=== PATIENT | male | born 1945 | race Caucasian/White ===

== ENCOUNTER 2021-08-07 12:19 | Emergency (ER) | payer MEDICARE, OTHER ==
[~2021-08-07] VITALS: Ht 154.9 cm; Wt 70.8 kg
[~2021-08-07 12:19] MED LIST: CINA30TA2 PO; FURO40TA5 PO; METO50TA16 PO; MYCO250C PO; PRED5TAB48 PO; TACR1CAP2 PO
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
--- NOTE | 2021-08-07 12:35 | NUR ---
DR DYER AT BEDSIDE
[2021-08-07] MEDS ORDERED: TACR1CAP7 PO (12:38)
--- NOTE | 2021-08-07 12:50 | NUR ---
EKG DONE AT BEDSIDE
[2021-08-07] MEDS ORDERED: ASPI-1420 PO (13:00)
[2021-08-07] MEDS ORDERED: ALBU18HF2 PO (13:00)
--- NOTE | 2021-08-07 13:04 | NUR ---
CASHIER ASSOCIATE AT BEDSIDE
--- NOTE | 2021-08-07 13:04 | NUR ---
CXR AT BEDSIDE DONE
--- NOTE | 2021-08-07 13:05 | NUR ---
COVID SWAB DONE AND SENT TO LAB
[2021-08-07 13:20] LABS: BASOPHILS # (AUTO) 0.1 K/uL (0.0-0.2); BASOPHILS % (AUTO) 0.5 % (0.0-2.0); EOSINOPHILS % (AUTO) 1.5 % (0.0-6.0); HEMATOCRIT 39 % (39-51); HEMOGLOBIN 12.9 g/dL (13.5-17.5); LYMPHOCYTES # (AUTO) 0.5 K/uL (0.8-4.8); LYMPHOCYTES % (AUTO) 5.1 % (20.0-44.0); MEAN CORPUSCULAR HGB CONC 33 g/dl (31.0-36.0); MEAN CORPUSCULAR VOLUME 83 fL (80-96); MONOCYTES # (AUTO) 0.6 K/uL (0.1-1.30); MONOCYTES % (AUTO) 5.7 % (2.0-12.0); NEUTROPHILS # (AUTO) 9.2 K/uL (1.8-8.9); NEUTROPHILS % (AUTO) 87.2 % (43.0-81.0); PLATELET COUNT (AUTO) 203 K/uL (150-450); RED BLOOD CELL COUNT(AUTO) 4.75 MIL/uL (4.5-6.0); WHITE BLOOD COUNT (AUTO) 10.5 K/uL (4.3-11.0)
[2021-08-07 13:38] LABS: CALCIUM, SERUM 9.8 mg/dL (8.5-10.1); CARBON DIOXIDE 31 mmol/L (21-32); CHLORIDE 105 mmol/L (98-107); CREATININE 1.7 mg/dL (0.6-1.3); GLUCOSE 114 mg/dL (74-106); POTASSIUM 3.2 mmol/L (3.5-5.1); SODIUM SERUM 144 mmol/L (136-145); UREA NITROGEN, BLOOD 28 mg/dL (7-18)
--- NOTE | 2021-08-07 13:45 | NUR ---
MOVE SHEET SUBMITTED.
[2021-08-07 13:51] LABS: ALANINE AMINOTRANSFERASE 17 U/L (12-78); ALBUMIN 3.3 g/dL (3.4-5.0); ALKALINE PHOSPHATASE 56 U/L (46-116); ASPARTATE AMINOTRANSFERASE 21 U/L (15-37); BILIRUBIN,DIRECT 0.1 mg/dL (0.0-0.2); BILIRUBIN,TOTAL 0.6 mg/dL (0.2-1.0); TOTAL PROTEIN, SERUM 7.2 g/dL (6.4-8.2)
--- NOTE | 2021-08-07 14:15 | NUR ---
[phone] BED & CALL BACK.
[2021-08-07] MEDS ORDERED: NITROGLYCERIN PACKET 1 GM PACKET TD ONE (14:30)
[2021-08-07] MEDS ORDERED: ASPIRIN 325 MG TABLET PO ONE (14:30)
[2021-08-07] MEDS ORDERED: FUROSEMIDE 40 MG/4 ML VIAL IV ONE (14:30)
--- NOTE | 2021-08-07 14:43 | NUR ---
FAXED CLINICALS TO [facility] [phone] MANU[facility]
[2021-08-07] MEDS ORDERED: FUROSEMIDE 40 MG/4 ML VIAL ONE (14:47)
[2021-08-07] MEDS ORDERED: NITROGLYCERIN PACKET 1 GM PACKET ONE (14:47)
[2021-08-07] MEDS ORDERED: ASPIRIN EC 325 MG TABLET.DR PO ONE (14:48)
--- NOTE | 2021-08-07 15:12 | NUR ---
IV CANNULA G20 INSERTED ON RIGHT AC.
--- NOTE | 2021-08-07 18:06 | NUR ---
MIKAYLA JACKSON PT IS ADMITTED TO [facility] AWAITING ADMITTING INFO.
--- NOTE | 2021-08-07 18:56 | NUR ---
CALLED [facility] [phone] FOR UPDATE LEFT VM
--- NOTE | 2021-08-07 19:32 | NUR ---
S/W [facility] FROM [facility] ACCEPTING INFO DR SURAJ ONTIVEROS Addendum: 08/07/21 at 1933 bee [facility] 208A REPORT TO [phone] JADEN HERNANDEZ,
--- NOTE | 2021-08-07 20:04 | NUR ---
[facility] ETA [phone]
[2021-08-07 21:02] VITALS: BP 132/78
--- NOTE | 2021-08-07 21:31 | NUR ---
REPORT GIVEN TO JADEN ADAMSON OF [facility] EXT [id number]
--- NOTE | 2021-08-07 23:23 | NUR ---
[facility] AT BEDSIDE FOR PATIENT TRANSFER.
[2021-08-09] MEDS ORDERED: NAPROXEN 250 MG TABLET ONE (11:26)
[2021-08-09] MEDS ORDERED: HYDROCODONE/APAP 5/325MG TABLET ONE ×2 (11:27)
== END 2021-08-07 23:30 | disposition short-term general hospital (02) ==
LOC: ER 12:22
DX: I11.0 Hypertensive heart disease with heart failure (principal); I50.21 Acute systolic (congestive) heart failure; J43.9 Emphysema, unspecified; Z94.0 Kidney transplant status; F17.200 Nicotine dependence, unspecified, uncomplicated; Z79.899 Other long term (current) drug therapy; Z20.822 Contact with and (suspected) exposure to COVID-19
CPT/HCPCS: 36415; 71045; 80048; 80076; 83880; 84484; 85025; 87426; 93005; 96374; 99285; J1940; C9803

== ENCOUNTER 2021-09-24 11:20 | Emergency (ER) | payer OTHER ==
[~2021-09-24] VITALS: Ht 152.4 cm; Wt 68.0 kg
[~2021-09-24 11:20] MED LIST changes: +ALBU18HF2 INH; +ASPI-1420 PO; -CINA30TA2 PO; +TACR1CAP7 PO
[2021-09-24] MEDS ORDERED: MORPHINE SULFATE INJ 4 MG/ML DISP.SYRIN IV ONE (11:22)
--- NOTE | 2021-09-24 11:45 | NUR ---
C/O abdominale pain since this nidian 2 hr ago no n/v
--- NOTE | 2021-09-24 11:50 | NUR ---
blood drow by lab tach
--- NOTE | 2021-09-24 11:55 | NUR ---
to ct scan of abdomin
[2021-09-24 12:54] LABS: ALANINE AMINOTRANSFERASE 16 U/L (12-78); ALBUMIN 3.4 g/dL (3.4-5.0); ALKALINE PHOSPHATASE 63 U/L (46-116); ASPARTATE AMINOTRANSFERASE 16 U/L (15-37); BILIRUBIN,DIRECT 0.2 mg/dL (0.0-0.2); BILIRUBIN,TOTAL 0.8 mg/dL (0.2-1.0); CALCIUM, SERUM 10.2 mg/dL (8.5-10.1); CARBON DIOXIDE 28 mmol/L (21-32); CHLORIDE 104 mmol/L (98-107); CREATININE 2.1 mg/dL (0.6-1.3); GLUCOSE 91 mg/dL (74-106); POTASSIUM 3.7 mmol/L (3.5-5.1); SODIUM SERUM 140 mmol/L (136-145); UREA NITROGEN, BLOOD 30 mg/dL (7-18)
[2021-09-24] MEDS ORDERED: ONDANSETRON HCL/PF 4 MG/2 ML VIAL ONE (13:01)
[2021-09-24] MEDS ORDERED: MORPHINE SULFATE INJ 4 MG/ML DISP.SYRIN ONE ×2 (13:01→20:12)
[2021-09-24] MEDS: ONDANSETRON HCL/PF - ER 4 MG/2 ML VIAL IV ONE (13:07)
[2021-09-24] MEDS: MORPHINE SULFATE INJ 2 MG/ML DISP.SYRIN IV ONE ×5 (13:07→20:18)
--- NOTE | 2021-09-24 14:12 | NUR ---
THOMAS MORALES SENT TO LAB
--- NOTE | 2021-09-24 14:23 | NUR ---
DR. BURLESON SPEAKING WITH DR. TRACEY.
[2021-09-24] MEDS ORDERED: MORPHINE SULFATE INJ 2 MG/ML DISP.SYRIN ONE ×2 (14:45→15:19)
[2021-09-24] MEDS ORDERED: LOSA50TA39 PO (15:23)
[2021-09-24] MEDS ORDERED: PRED5TAB PO (15:23)
[2021-09-24] MEDS ORDERED: POTA20TA83 PO (15:23)
[2021-09-24] MEDS ORDERED: AMLO-212 PO (15:23)
--- NOTE | 2021-09-24 15:26 | NUR ---
C/O ABDPMINAL PAIN 08/08 NO N/V AT THIS TIME
--- NOTE | 2021-09-24 15:31 | NUR ---
DR. STROUD SPEAKING W/ DR. TRACEY.
[2021-09-24] MEDS ORDERED: DIATR MEGLU/DIATRIZOATE SODIUM 120 ML BOTTLE (GASTROGRAPHIN) ONE (15:37)
--- NOTE | 2021-09-24 16:08 | NUR ---
ROB PINO ORDER A SMALL BOWEL FOLLOW THROUGH, PT. ALREADY ON THE TABLE AND REFUSED TO CONTINUE DUE TO PAIN.
--- NOTE | 2021-09-24 16:28 | NUR ---
LUIS MIGUEL MCKEON FROM [facility] [phone]
--- NOTE | 2021-09-24 16:50 | NUR ---
X -RAY DONE NGT IN STOMACH CONFERMET BY DR. EVANS
[2021-09-24 17:08] LABS: LIPASE 148 U/L (73-393)
--- NOTE | 2021-09-24 17:34 | NUR ---
DR. EVANS NOTEFY ABOUT MEDICTION FOR ABDOMINAL 11/08 PAIN
[2021-09-24 17:48] LABS: HEMATOCRIT 40 % (39-51); LYMPHOCYTES % (AUTO) 7.4 % (20.0-44.0); MEAN CORPUSCULAR HGB CONC 33 g/dl (31.0-36.0); MEAN CORPUSCULAR VOLUME 82 fL (80-96); MONOCYTES % (AUTO) 6.7 % (2.0-12.0); PLATELET COUNT (AUTO) 171 K/uL (150-450); RED BLOOD CELL COUNT(AUTO) 4.89 MIL/uL (4.5-6.0); WHITE BLOOD COUNT (AUTO) 10.5 K/uL (4.3-11.0)
[2021-09-24 17:49] LABS: BASOPHILS # (AUTO) 0.1 K/uL (0.0-0.2); BASOPHILS % (AUTO) 0.6 % (0.0-2.0); EOSINOPHILS % (AUTO) 1.3 % (0.0-6.0); LYMPHOCYTES # (AUTO) 0.8 K/uL (0.8-4.8); MONOCYTES # (AUTO) 0.7 K/uL (0.1-1.30); NEUTROPHILS # (AUTO) 8.8 K/uL (1.8-8.9)
--- NOTE | 2021-09-24 18:45 | NUR ---
[facility] FOR [facility]Epting hospitale ngt intact inplace draing brownish color
--- NOTE | 2021-09-24 19:03 | NUR ---
ETA FOR PICK-UP BETWEEN [phone]
--- NOTE | 2021-09-24 19:17 | NUR ---
HAND OFF ERCK RN
--- NOTE | 2021-09-24 19:25 | NUR ---
TRANSFER INFO: [facility] [address]OM [address] (ROOM READY AT 1930) FOR REPORT: #[phone] [facility], ETA [phone]
[2021-09-24] MEDS ORDERED: hydrALAZINE HCL IV 20 MG VIAL ONE ×2 (20:11→22:43)
[2021-09-24] MEDS: hydrALAZINE HCL IV 20 MG VIAL IV ONE ×2 (20:44→22:47)
--- NOTE | 2021-09-24 20:46 | NUR ---
REPORT GIVEN TO JADEN JONES
--- NOTE | 2021-09-24 22:47 | NUR ---
[facility]PORT[facility] ETA: 30-45 MIN AUTH FOR TRANSAPO: [id number]
--- NOTE | 2021-09-24 22:52 | NUR ---
MARIO PARTS PICKER: [phone]
--- NOTE | 2021-09-24 23:39 | NUR ---
REPORT GIVEN TO EMS AT BEDSIDE
[2021-09-25 00:04] VITALS: BP 147/73
== END 2021-09-25 00:04 | disposition short-term general hospital (02) ==
LOC: ER 11:21
DX: K56.609 Unspecified intestinal obstruction, unspecified as to partial versus complete obstruction (principal); Z20.822 Contact with and (suspected) exposure to COVID-19; I25.10 Atherosclerotic heart disease of native coronary artery without angina pectoris; Z95.1 Presence of aortocoronary bypass graft; Z94.0 Kidney transplant status; J43.9 Emphysema, unspecified; I11.9 Hypertensive heart disease without heart failure; K40.20 Bilateral inguinal hernia, without obstruction or gangrene, not specified as recurrent; Z79.899 Other long term (current) drug therapy
CPT/HCPCS: 99285; 74176; 96374; 71045; 96375; 87426; 96376; 85025; 80048; 83690; 80076; 36415; J0360 ×2; J2270 ×5; J2405 ×2; J7030; Q9963; C9803